=== PATIENT | female | born 1980 | race Caucasian/White ===

== ENCOUNTER 2021-01-05 11:38 | Emergency (ER) | payer OTHER | END 2021-01-05 13:15 | disposition home or self-care (01) | LOC: JVIRT 11:38 | DX: U07.1 COVID-19 (principal) | CPT/HCPCS: C9803; G2251-GT; U0003 ==

== ENCOUNTER 2021-12-09 06:45 | Emergency (ER) | payer OTHER ==
[2021-12-09 06:50] VITALS: BMI 29.1
[2021-12-09] MEDS ORDERED: MAG HYDROX/AL HYDROX/SIMETH -MYLANTA- ORAL SUSPENSION PO ONE (07:25)
[2021-12-09] MEDS ORDERED: FAMOTIDINE 20 MG/50 ML IVPB 20 MG/50 ML MG IVPB ONE ×2 (07:25→08:52)
[2021-12-09] MEDS ORDERED: MAG HYDROX/AL HYDROX/SIMETH 30 ML UNIT-DOSE CUP ONE (08:31)
[2021-12-09 09:09] LABS: BASO % 0.5 % (0-2.0); EOS % 0.4 % (0-4.5); HEMATOCRIT 39.5 % (32.4-45.2); HEMOGLOBIN 13.3 GM/dL (10.7-15.3); LYMPH % 22.7 % (8-40); MCH 27.8 pg (25.7-33.7); MCHC 33.8 g/dl (32.0-36.0); MEAN CELL VOLUME 82.4 fl (80-96); MONO % 4.1 % (3.8-10.2); NEUT % 72.3 % (42.8-82.8); PLATELET COUNT 304 10^3/uL (134-434); RBC 4.79 M/mm3 (3.60-5.2); RDW 14.3 % (11.6-15.6); WHITE BLOOD COUNT 4.9 K/mm3 (4.0-10.0)
[2021-12-09 09:30] LABS: ALBUMIN 4.4 g/dl (3.4-5.0); BLOOD UREA NITROGEN 10.1 mg/dL (7-18); CALCIUM 9.4 mg/dL (8.5-10.1); MAGNESIUM 2.2 mg/dL (1.8-2.4)
[2021-12-09 09:33] LABS: CREATININE 0.8 mg/dL (0.55-1.3)
[2021-12-09 09:34] LABS: BILIRUBIN,TOTAL 0.3 mg/dL (0.2-1)
[2021-12-09 09:35] LABS: TOT PROT 8.2 g/dl (6.4-8.2)
[2021-12-09] MEDS ORDERED: ASPIRIN 81 MG CHEWABLE TABLETS PO ONE (10:19)
[2021-12-09 10:46] VITALS: BP 124/50; PULSE 65; TEMP 98.3
== END 2021-12-09 11:14 | disposition home or self-care (01) ==
LOC: JER 06:45
PROC: 3E033GC Introduction of Other Therapeutic Substance into Peripheral Vein, Percutaneous Approach (ICD-10-PCS; principal; 2021-12-09)
DX: R10.9 Unspecified abdominal pain (principal)
CPT/HCPCS: 36415; 71046-TC-FY; 80053; 82550; 83735; 84484; 85025; 93005; 93010; 96374; 99285-25

== ENCOUNTER 2021-12-25 02:23 | Emergency (ER) | payer OTHER ==
[2021-12-25 02:33] VITALS: BMI 30.9
[2021-12-25] MEDS ORDERED: ACETAMINOPHEN 1000 MG/100 ML BAG IVPB ONE (03:00)
[2021-12-25] MEDS ORDERED: ACETAMINOPHEN INJECTION 100 ML IVPB ONE (03:17)
[2021-12-25 03:40] LABS: BASO % 0.6 % (0-2.0); HEMATOCRIT 35.8 % (32.4-45.2); LYMPH % 50.3 % (8-40); MCH 27.7 pg (25.7-33.7); MCHC 33.6 g/dl (32.0-36.0); MEAN CELL VOLUME 82.3 fl (80-96); MEAN PLT VOLUME 7.1 fl (7.5-11.1); MONO % 5.1 % (3.8-10.2); PLATELET COUNT 284 10^3/uL (134-434); RBC 4.35 M/mm3 (3.60-5.2); RDW 14.9 % (11.6-15.6); WHITE BLOOD COUNT 4.7 K/mm3 (4.0-10.0)
[2021-12-25 03:41] LABS: PH,URINE 6.5 (5.0-8.0); URINE APPEARANCE CLEAR; URINE BILIRUBIN NEGATIVE (NEGATIVE); URINE COLOR YELLOW; URINE GLUCOSE (UA) NEGATIVE (NEGATIVE); URINE KETONE NEGATIVE (NEGATIVE); URINE LEUK ESTERASE NEGATIVE (NEGATIVE); URINE NITRITE NEGATIVE (NEGATIVE); URINE PROTEIN NEGATIVE (NEGATIVE); URINE UROBILINOGEN 0.2 mg/dL (0.2-1.0)
[2021-12-25 03:47] LABS: INR 1.05 (0.83-1.09); PROTHROMBIN TIME (PATIENT) 12.1 SEC (9.7-13.0)
[2021-12-25 03:50] LABS: ACTIVATED PTT 32.4 SECONDS (25.2-36.5)
[2021-12-25 03:54] LABS: ALBUMIN 3.8 g/dl (3.4-5.0); CALCIUM 8.9 mg/dL (8.5-10.1)
[2021-12-25 03:55] LABS: BLOOD UREA NITROGEN 13.9 mg/dL (7-18)
[2021-12-25 03:57] LABS: CREATININE 0.9 mg/dL (0.55-1.3)
[2021-12-25 03:59] LABS: BILIRUBIN,TOTAL 0.3 mg/dL (0.2-1); TOT PROT 7.5 g/dl (6.4-8.2)
[2021-12-25] MEDS ORDERED: KETOROLAC TROMETHAMINE 15 MG/ML VIAL IVPUSH ONE (06:25)
[2021-12-25] MEDS ORDERED: KETOROLAC TROMETHAMINE 15 MG/ML VIAL ONE (06:31)
[2021-12-25 09:46] VITALS: BP 118/82; PULSE 60; TEMP 98.2
== END 2021-12-25 11:14 | disposition home or self-care (01) ==
LOC: JER 02:23
PROC: 3E0333Z Introduction of Anti-inflammatory into Peripheral Vein, Percutaneous Approach (ICD-10-PCS; principal; 2021-12-25)
PROC: 3E0333Z Introduction of Anti-inflammatory into Peripheral Vein, Percutaneous Approach (ICD-10-PCS; 2021-12-25)
DX: R10.31 Right lower quadrant pain (principal)
CPT/HCPCS: 36415; 71045-TC-FY; 74177-TC; 76830-TC; 80053; 81003; 83690; 84484; 84703; 85025; 85610; 85730; 87086; 87491; 87591; 87661; 93005; 93010; 99285-25; Q9967

== ENCOUNTER 2022-04-22 12:19 | Emergency (ER) | payer OTHER ==
[2022-04-22 12:27] VITALS: BP 111/68; PULSE 64; TEMP 98.3
[2022-04-22] MEDS ORDERED: PANTOPRAZOLE 40 MG TABLET PO ONE ×2 (13:04→13:30)
[2022-04-22] MEDS ORDERED: FAMOTIDINE 20 MG TABLET PO ONE (13:04)
[2022-04-22] MEDS ORDERED: MAG HYDROX/AL HYDROX/SIMETH -MYLANTA- ORAL SUSPENSION PO ONE (13:04)
[2022-04-22] MEDS ORDERED: FAMOTIDINE 20 MG TABLET ONE (13:30)
[2022-04-22] MEDS ORDERED: MAG HYDROX/AL HYDROX/SIMETH 30 ML UNIT-DOSE CUP ONE (13:30)
[2022-04-22 13:54] LABS: HEMATOCRIT 39.1 % (32.4-45.2); HEMOGLOBIN 13.1 GM/dL (10.7-15.3); MCH 27.7 pg (25.7-33.7); MCHC 33.4 g/dl (32.0-36.0); MEAN CELL VOLUME 82.8 fl (80-96); MEAN PLT VOLUME 7.9 fl (7.5-11.1); PLATELET COUNT 288 10^3/uL (134-434); RBC 4.72 M/mm3 (3.60-5.2); RDW 14.1 % (11.6-15.6); WHITE BLOOD COUNT 6.5 K/mm3 (4.0-10.0)
== END 2022-04-22 14:28 | disposition home or self-care (01) ==
LOC: JER 12:19
DX: K21.00 Gastro-esophageal reflux disease with esophagitis, without bleeding (principal)
CPT/HCPCS: 36415; 85027; 93005; 93010; 99283-25

== ENCOUNTER 2022-06-02 22:29 | Emergency (ER) | payer OTHER ==
[2022-06-02 22:40] VITALS: BP 134/85; PULSE 67; RESP 20; TEMP 97.9; BMI 29.1
[2022-06-02] MEDS ORDERED: SODIUM CHLORIDE 0.9% 500 ML INFUS.BAG IV ONE (23:18)
[2022-06-02] MEDS ORDERED: ONDANSETRON 4 MG/2 ML VIAL IVPUSH ONE (23:18)
[2022-06-02 23:43] LABS: URINE APPEARANCE CLEAR; URINE BILIRUBIN NEGATIVE (NEGATIVE); URINE COLOR YELLOW; URINE GLUCOSE (UA) NEGATIVE (NEGATIVE); URINE KETONE NEGATIVE (NEGATIVE); URINE LEUK ESTERASE NEGATIVE (NEGATIVE); URINE NITRITE NEGATIVE (NEGATIVE); URINE PROTEIN NEGATIVE (NEGATIVE); URINE UROBILINOGEN 0.2 mg/dL (0.2-1.0)
[2022-06-02 23:46] LABS: HCG,QUALITATIVE URINE Negative
[2022-06-03] MEDS ORDERED: ONDANSETRON 4 MG/2 ML VIAL ONE (00:02)
[2022-06-03 00:35] LABS: BASO % 0.4 % (0-2.0); EOS % 0.8 % (0-4.5); HEMATOCRIT 35.1 % (32.4-45.2); HEMOGLOBIN 12.1 GM/dL (10.7-15.3); LYMPH % 46.3 % (8-40); MCH 27.9 pg (25.7-33.7); MCHC 34.5 g/dl (32.0-36.0); MEAN PLT VOLUME 7.1 fl (7.5-11.1); MONO % 6.9 % (3.8-10.2); NEUT % 45.6 % (42.8-82.8); PLATELET COUNT 286 10^3/uL (134-434); RBC 4.33 M/mm3 (3.60-5.2); RDW 14.5 % (11.6-15.6); WHITE BLOOD COUNT 5.3 K/mm3 (4.0-10.0)
[2022-06-03 01:03] LABS: CHLORIDE 104 mmol/L (98-107); SODIUM 135 mmol/L (136-145)
[2022-06-03] MEDS ORDERED: MECLIZINE HCL 25 MG TABLET (FP) PO ONE (01:04)
[2022-06-03 01:05] LABS: ALBUMIN 3.4 g/dl (3.4-5.0); CALCIUM 8.5 mg/dL (8.5-10.1)
[2022-06-03 01:06] LABS: CO2 27 mmol/L (21-32); GLUCOSE,RANDOM 86 mg/dL (74-106)
[2022-06-03 01:09] LABS: SGOT/AST 75 U/L (15-37)
[2022-06-03] MEDS ORDERED: MECLIZINE HCL 25 MG TABLET (FP) ONE (01:09)
[2022-06-03 01:10] LABS: BILIRUBIN,TOTAL 0.3 mg/dL (0.2-1); TOT PROT 7.9 g/dl (6.4-8.2)
[2022-06-03 01:12] LABS: ALK PHOS 85 U/L (45-117)
[2022-06-03 02:22] LABS: ANION GAP 5 MMOL/L (8-16); SGPT/ALT 32 U/L (13-61)
[2022-06-03 07:54] LABS: MAGNESIUM 2.4 mg/dL (1.8-2.4)
[2022-06-03 07:58] LABS: PHOSPHOROUS 4.6 mg/dL (2.5-4.9)
== END 2022-06-03 01:28 | disposition home or self-care (01) ==
LOC: JER 22:29
PROC: 3E033GC Introduction of Other Therapeutic Substance into Peripheral Vein, Percutaneous Approach (ICD-10-PCS; principal; 2022-06-02)
DX: R42 Dizziness and giddiness (principal); R10.9 Unspecified abdominal pain
CPT/HCPCS: 0241U-QW; 36415; 80053; 81003; 83735; 84100; 84703; 85025; 87086; 93005; 93010; 99284-25

== ENCOUNTER 2022-11-27 22:47 | Inpatient (IN) | payer OTHER ==
[2022-11-27] MEDS ORDERED: ONDANSETRON 4 MG/2 ML VIAL IVPUSH ONE (23:26)
[2022-11-27] MEDS ORDERED: ACETAMINOPHEN 1000 MG/100 ML BAG IVPB ONE (23:26)
[2022-11-27] MEDS ORDERED: ONDANSETRON 4 MG/2 ML VIAL ONE (23:37)
[2022-11-27] MEDS ORDERED: ACETAMINOPHEN INJECTION 100 ML IVPB ONE (23:37)
[2022-11-27] MEDS ORDERED: LACTATED RINGERS SOLUTION 1000 ML INFUS.BAG IV ONE (23:51)
[2022-11-28 01:46] LABS: BASO % 0.3 % (0-2.0); EOS % 0.1 % (0-4.5); HEMATOCRIT 24.7 % (32.4-45.2); HEMOGLOBIN 8.3 GM/dL (10.7-15.3); LYMPH % 9.6 % (8-40); MCH 27.7 pg (25.7-33.7); MCHC 33.5 g/dl (32.0-36.0); MEAN CELL VOLUME 82.7 fl (80-96); MEAN PLT VOLUME 6.9 fl (7.5-11.1); MONO % 6.5 % (3.8-10.2); NEUT % 83.5 % (42.8-82.8); PLATELET COUNT 189 10^3/uL (134-434); RBC 2.98 M/mm3 (3.60-5.2); RDW 13.9 % (11.6-15.6); WHITE BLOOD COUNT 7.4 K/mm3 (4.0-10.0)
[2022-11-28 02:01] LABS: CALCIUM 8.5 mg/dL (8.5-10.1)
[2022-11-28 02:02] LABS: ALBUMIN 3.6 g/dl (3.4-5.0); BLOOD UREA NITROGEN 12.4 mg/dL (7-18)
[2022-11-28 02:05] LABS: CREATININE 0.7 mg/dL (0.55-1.3)
[2022-11-28 02:07] LABS: BILIRUBIN,TOTAL 0.8 mg/dL (0.2-1); TOT PROT 7.2 g/dl (6.4-8.2)
[2022-11-28] MEDS ORDERED: DIPHTH,PERTUSS(ACELL),TET 0.5 ML DISP.SYRIN IM ONE ×2 (02:20→04:00)
[2022-11-28 03:45] LABS: BASO % 0.2 % (0-2.0); HEMATOCRIT 35.4 % (32.4-45.2); HEMOGLOBIN 11.9 GM/dL (10.7-15.3); LYMPH % 8.8 % (8-40); MCH 27.6 pg (25.7-33.7); MCHC 33.5 g/dl (32.0-36.0); MEAN CELL VOLUME 82.4 fl (80-96); MEAN PLT VOLUME 7.1 fl (7.5-11.1); MONO % 5.7 % (3.8-10.2); NEUT % 85.3 % (42.8-82.8); PLATELET COUNT 260 10^3/uL (134-434); RDW 14.1 % (11.6-15.6); WHITE BLOOD COUNT 6.5 K/mm3 (4.0-10.0)
[2022-11-28 04:07] LABS: CHLORIDE 105 mmol/L (98-107); SODIUM 137 mmol/L (136-145)
[2022-11-28 04:09] LABS: CALCIUM 8.5 mg/dL (8.5-10.1)
[2022-11-28 04:10] LABS: ALBUMIN 3.4 g/dl (3.4-5.0); ANION GAP 7 MMOL/L (8-16); BLOOD UREA NITROGEN 11.4 mg/dL (7-18); CO2 24 mmol/L (21-32); GLUCOSE,RANDOM 166 mg/dL (74-106)
[2022-11-28 04:13] LABS: CREATININE 0.8 mg/dL (0.55-1.3); SGPT/ALT 746 U/L (13-61); TOTAL IRON BINDING CAPACITY 311 ug/dL (250-450)
[2022-11-28 04:14] LABS: BILIRUBIN,TOTAL 0.7 mg/dL (0.2-1); IRON SERUM 47 ug/dL (50-175); LDH 824 U/L (84-246)
[2022-11-28 04:15] LABS: TOT PROT 6.8 g/dl (6.4-8.2)
[2022-11-28 04:16] LABS: ALK PHOS 107 U/L (45-117)
[2022-11-28 04:41] LABS: SGOT/AST 1268 U/L (15-37)
[2022-11-28 05:39] LABS: BILIRUBIN,DIRECT 0.5 mg/dL (0.0-0.2)
[2022-11-28] MEDS: SODIUM CHLORIDE 1,000 ML IV SCH ×2 (05:46→22:15)
[2022-11-28 06:19] LABS: RETICULOCYTES 0.68 % (0.5-1.5)
[2022-11-28 06:49] LABS: EPI CELLS >36 /uL (0-25.1); HYALINE CASTS 0 /uL (0-3.1); URINE APPEARANCE CLEAR; URINE BACTERIA 1832 /uL (0-1359); URINE BILIRUBIN NEGATIVE (NEGATIVE); URINE COLOR YELLOW; URINE GLUCOSE (UA) NEGATIVE (NEGATIVE); URINE KETONE NEGATIVE (NEGATIVE); URINE LEUK ESTERASE 2+ (NEGATIVE); URINE NITRITE NEGATIVE (NEGATIVE); URINE PROTEIN NEGATIVE (NEGATIVE); URINE RBC 4 /uL (0-23.9); URINE WBC 68 /uL (0-25.8)
[2022-11-28 06:55] LABS: COCAINE, UR NEGATIVE (NEGATIVE); OPIATES, URI NEGATIVE (NEGATIVE)
[2022-11-28 06:56] LABS: METHADONE, UR NEGATIVE (NEGATIVE); PHENCYCLIDINE,URINE NEGATIVE (NEGATIVE); URINE BENZODIAZEPINES NEGATIVE (NEGATIVE)
[2022-11-28 07:02] LABS: URINE AMPHETAMINES NEGATIVE (NEGATIVE); URINE BARBITURATES NEGATIVE (NEGATIVE)
[2022-11-28 07:05] LABS: CALCIUM 8.9 mg/dL (8.5-10.1)
[2022-11-28 07:06] LABS: ALBUMIN 3.8 g/dl (3.4-5.0); BLOOD UREA NITROGEN 9.2 mg/dL (7-18)
[2022-11-28 07:09] LABS: CREATININE 0.7 mg/dL (0.55-1.3)
[2022-11-28 07:11] LABS: BILIRUBIN,TOTAL 0.9 mg/dL (0.2-1); TOT PROT 7.5 g/dl (6.4-8.2)
[2022-11-28] MEDS ORDERED: PANTOPRAZOLE 40 MG TABLET PO SCH (10:00)
[2022-11-28] MEDS ORDERED: amLODIPine BESYLATE 5 MG TABLET (FP) PO SCH (10:00)
[2022-11-28 11:43] LABS: INR 1.06 (0.83-1.09); PROTHROMBIN TIME (PATIENT) 12.3 SEC (9.7-13.0)
[2022-11-28 11:46] LABS: ACTIVATED PTT 28.4 SECONDS (25.2-36.5)
[2022-11-28] MEDS ORDERED: ALPRAZolam 1 MG TABLET PO PRN (12:34)
[2022-11-28] MEDS: ESCITALOPRAM OXALATE 10 MG TABLET PO SCH (14:32)
[2022-11-28 17:15] VITALS: BMI 29.2
[2022-11-28] MEDS: MELATONIN 5 MG TABLETS PO SCH (22:28)
[2022-11-29] MEDS: SODIUM CHLORIDE 1,000 ML IV SCH (05:57)
[2022-11-29 07:33] LABS: BASO % 0.7 % (0-2.0); EOS % 1.2 % (0-4.5); HEMATOCRIT 33.1 % (32.4-45.2); HEMOGLOBIN 11.1 GM/dL (10.7-15.3); LYMPH % 35.3 % (8-40); MCH 27.5 pg (25.7-33.7); MCHC 33.4 g/dl (32.0-36.0); MEAN CELL VOLUME 82.2 fl (80-96); MEAN PLT VOLUME 7.5 fl (7.5-11.1); MONO % 7.9 % (3.8-10.2); NEUT % 54.9 % (42.8-82.8); PLATELET COUNT 246 10^3/uL (134-434); RBC 4.03 M/mm3 (3.60-5.2); WHITE BLOOD COUNT 3.5 K/mm3 (4.0-10.0)
[2022-11-29 08:24] LABS: CALCIUM 8.5 mg/dL (8.5-10.1)
[2022-11-29 08:25] LABS: ALBUMIN 3.3 g/dl (3.4-5.0); BLOOD UREA NITROGEN 6.9 mg/dL (7-18)
[2022-11-29 08:27] LABS: TOT PROT 6.6 g/dl (6.4-8.2)
[2022-11-29 08:28] LABS: BILIRUBIN,TOTAL 0.6 mg/dL (0.2-1); CREATININE 0.6 mg/dL (0.55-1.3)
[2022-11-29] MEDS: ESCITALOPRAM OXALATE 10 MG TABLET PO SCH (10:11)
[2022-11-29] MEDS: MELATONIN 5 MG TABLETS PO SCH (21:42)
[2022-11-30 08:22] LABS: ALBUMIN 3.6 g/dl (3.4-5.0); BLOOD UREA NITROGEN 7.4 mg/dL (7-18); CREATININE 0.7 mg/dL (0.55-1.3)
[2022-11-30 08:23] LABS: BILIRUBIN,TOTAL 0.5 mg/dL (0.2-1)
[2022-11-30] MEDS: CEPHALEXIN MONOHYDRATE 500 MG CAPSULE (UD) PO SCH ×2 (10:28→21:38)
[2022-11-30] MEDS: ESCITALOPRAM OXALATE 10 MG TABLET PO SCH (10:28)
[2022-11-30 11:06] VITALS: RESP 18
[2022-11-30 14:08] LABS: BASO % 0.5 % (0-2.0); EOS % 0.7 % (0-4.5); HEMATOCRIT 39.9 % (32.4-45.2); HEMOGLOBIN 13.4 GM/dL (10.7-15.3); LYMPH % 26.3 % (8-40); MCH 27.7 pg (25.7-33.7); MCHC 33.6 g/dl (32.0-36.0); MEAN CELL VOLUME 82.4 fl (80-96); MEAN PLT VOLUME 7.5 fl (7.5-11.1); MONO % 5.9 % (3.8-10.2); NEUT % 66.6 % (42.8-82.8); PLATELET COUNT 315 10^3/uL (134-434); RBC 4.84 M/mm3 (3.60-5.2); RDW 14.2 % (11.6-15.6); WHITE BLOOD COUNT 5.1 K/mm3 (4.0-10.0)
[2022-11-30 14:19] LABS: INR 1.1 (0.83-1.09); PROTHROMBIN TIME (PATIENT) 12.7 SEC (9.7-13.0)
[2022-11-30] MEDS ORDERED: ALPRAZolam 0.25 MG TABLET PO ONE (17:08)
[2022-11-30] MEDS ORDERED: DOCUSATE SODIUM 100 MG CAPSULE (FP) PO PRN (20:54)
[2022-11-30] MEDS: MELATONIN 5 MG TABLETS PO SCH (22:29)
[2022-12-01] MEDS: ESCITALOPRAM OXALATE 10 MG TABLET PO SCH (09:11)
[2022-12-01] MEDS: CEPHALEXIN MONOHYDRATE 500 MG CAPSULE (UD) PO SCH (09:13)
[2022-12-01 09:15] VITALS: BP 119/80; PULSE 72; TEMP 98
[2022-12-01 10:44] LABS: BASO % 0.7 % (0-2.0); EOS % 0.6 % (0-4.5); HEMATOCRIT 38.7 % (32.4-45.2); LYMPH % 33.5 % (8-40); MCH 27.5 pg (25.7-33.7); MCHC 33.6 g/dl (32.0-36.0); MEAN PLT VOLUME 7.5 fl (7.5-11.1); MONO % 6.9 % (3.8-10.2); NEUT % 58.3 % (42.8-82.8); PLATELET COUNT 330 10^3/uL (134-434); RBC 4.73 M/mm3 (3.60-5.2); WHITE BLOOD COUNT 4.9 K/mm3 (4.0-10.0)
[2022-12-01 10:48] LABS: INR 1.09 (0.83-1.09); PROTHROMBIN TIME (PATIENT) 12.6 SEC (9.7-13.0)
[2022-12-01 11:12] LABS: BLOOD UREA NITROGEN 11.6 mg/dL (7-18); CALCIUM 9.3 mg/dL (8.5-10.1)
[2022-12-01 11:13] LABS: ALBUMIN 3.8 g/dl (3.4-5.0)
[2022-12-01 11:16] LABS: BILIRUBIN,TOTAL 0.7 mg/dL (0.2-1); CREATININE 0.8 mg/dL (0.55-1.3); TOT PROT 7.8 g/dl (6.4-8.2)
== END 2022-12-01 15:44 | disposition home or self-care (01) | DRG 204 ==
LOC: JER 22:47 → JERBED 11-28 02:31 → OBSVTOIN 11-28 04:05 → J4S 11-28 09:30
PROVIDERS: ADMIT Internal Medicine; ATTEND Nurse Practitioner Acute Care
PROC: 0CQ0XZZ Repair Upper Lip, External Approach (ICD-10-PCS; principal; 2022-11-27)
DX: R55 Syncope and collapse (principal); U07.1 COVID-19; R79.89 Other specified abnormal findings of blood chemistry; R74.01 Elevation of levels of liver transaminase levels; T40.2X5A Adverse effect of other opioids, initial encounter; Y92.89 Other specified places as the place of occurrence of the external cause; S01.511A Laceration without foreign body of lip, initial encounter; W19.XXXA Unspecified fall, initial encounter; Y93.9 Activity, unspecified; Y99.9 Unspecified external cause status; K21.9 Gastro-esophageal reflux disease without esophagitis; I10 Essential (primary) hypertension; F41.9 Anxiety disorder, unspecified
CPT/HCPCS: 36415; 70450-TC; 70486-TC; 71046-TC-FY; 72125-TC; 74176-TC; 74183-TC; 76705-TC; 80053; 80076; 80307; 81003; 82550; 82728; 83516; 83540; 83550; 83615; 83690; 83735; 84443; 84484; 84703; 85025; 85045; 85379; 85610; 85651; 85730; 86038; 86140; 86704; 86708; 86709; 86803; 87086; 87340; 87517; 90715; 93005; 93010; 99285-25; C9803-CS; G0378; U0003; U0005

== ENCOUNTER 2022-12-31 04:45 | Day surgery (SDC) | payer OTHER ==
[2022-12-31 08:10] VITALS: BMI 28.6
[2022-12-31 09:02] VITALS: TEMP 97.8
[2022-12-31 09:25] VITALS: BP 119/80; PULSE 65
[2022-12-31 09:47] VITALS: RESP 15
== END 2022-12-31 09:47 | disposition home or self-care (01) ==
LOC: JASU-ENDO 04:45
PROVIDERS: ATTEND Student in an Organized Health Care Education/Training Program
PROC: 0DB78ZX Excision of Stomach, Pylorus, Via Natural or Artificial Opening Endoscopic, Diagnostic (ICD-10-PCS; 2022-12-31)
PROC: 0DB68ZX Excision of Stomach, Via Natural or Artificial Opening Endoscopic, Diagnostic (ICD-10-PCS; principal; 2022-12-31 09:00)
DX: K29.50 Unspecified chronic gastritis without bleeding (principal); K21.9 Gastro-esophageal reflux disease without esophagitis
CPT/HCPCS: 81025; 88305-TC; 88342-TC

== ENCOUNTER 2023-06-16 17:06 | Emergency (ER) | payer OTHER ==
[2023-06-16 17:17] VITALS: BP 124/72; PULSE 83; RESP 18; TEMP 98.3; BMI 28.5
[2023-06-16] MEDS ORDERED: ACETAMINOPHEN 325 MG TABLET (FP) PO ONE (17:38)
[2023-06-16] MEDS ORDERED: ACETAMINOPHEN 325 MG TABLET (FP) ONE (17:47)
== END 2023-06-16 17:51 | disposition home or self-care (01) ==
LOC: JERFT 17:06
DX: M54.6 Pain in thoracic spine (principal); M25.561 Pain in right knee; M25.562 Pain in left knee; M54.2 Cervicalgia; V43.52XA Car driver injured in collision with other type car in traffic accident, initial encounter; Y93.I9 Activity, other involving external motion
CPT/HCPCS: 99283-25

== ENCOUNTER 2024-03-18 09:30 | Emergency (ER) | payer OTHER ==
[2024-03-18 09:56] VITALS: BP 103/66; PULSE 74; RESP 20; TEMP 97.9; BMI 28.6
[2024-03-18] MEDS ORDERED: FAMOTIDINE 20 MG/50 ML IVPB 20 MG/50 ML MG IVPB ONE (10:19)
[2024-03-18] MEDS ORDERED: MAG HYDROX/AL HYDROX/SIMETH 30 ML UNIT-DOSE CUP ONE (10:19)
[2024-03-18 10:22] LABS: BASO % 0.4 % (0-2.0); EOS % 0.6 % (0-4.5); HEMATOCRIT 35.3 % (32.4-45.2); LYMPH % 33.8 % (8-40); MCH 27.6 pg (25.7-33.7); MEAN PLT VOLUME 7.5 fl (7.5-11.1); MONO % 5.8 % (3.8-10.2); NEUT % 59.4 % (42.8-82.8); PLATELET COUNT 289 10^3/uL (134-434); RBC 4.36 M/mm3 (3.60-5.2); RDW 14.8 % (11.6-15.6); WHITE BLOOD COUNT 3.9 K/mm3 (4.0-10.0)
[2024-03-18] MEDS: MAG HYDROX/AL HYDROX/SIMETH 30 ML UNIT-DOSE CUP PO ONE (10:30)
[2024-03-18] MEDS: FAMOTIDINE 20 MG/50 ML IVPB 20 MG/50 ML MG IVPB ONE (10:31)
[2024-03-18 10:39] LABS: CHLORIDE 108 mmol/L (98-107); SODIUM 136 mmol/L (136-145)
[2024-03-18 10:41] LABS: CALCIUM 8.9 mg/dL (8.5-10.1)
[2024-03-18 10:42] LABS: ALBUMIN 3.3 g/dl (3.4-5.0); BLOOD UREA NITROGEN 8.9 mg/dL (7-18); CO2 28 mmol/L (21-32); GLUCOSE,RANDOM 103 mg/dL (74-106)
[2024-03-18 10:45] LABS: CREATININE 0.8 mg/dL (0.55-1.3); SGOT/AST 60 U/L (15-37)
[2024-03-18 10:46] LABS: ALK PHOS 74 U/L (45-117); TOT PROT 7.3 g/dl (6.4-8.2)
[2024-03-18 10:54] LABS: BILIRUBIN,TOTAL 0.3 mg/dL (0.2-1)
[2024-03-18 10:59] LABS: ANION GAP -1 mmol/L (4-13); POTASSIUM > 10.0 mmol/L (3.5-5.1)
[2024-03-18 11:00] LABS: SGPT/ALT 25 U/L (13-61)
[2024-03-18 11:08] LABS: PH,URINE 8.5 (5.0-8.0); URINE APPEARANCE CLOUDY; URINE BILIRUBIN NEGATIVE (NEGATIVE); URINE COLOR YELLOW; URINE GLUCOSE (UA) NEGATIVE (NEGATIVE); URINE KETONE NEGATIVE (NEGATIVE); URINE LEUK ESTERASE NEGATIVE (NEGATIVE); URINE NITRITE NEGATIVE (NEGATIVE); URINE PROTEIN NEGATIVE (NEGATIVE); URINE UROBILINOGEN 0.2 mg/dL (0.2-1.0)
== END 2024-03-18 11:24 | disposition home or self-care (01) ==
LOC: JER 09:30
PROC: 3E033GC Introduction of Other Therapeutic Substance into Peripheral Vein, Percutaneous Approach (ICD-10-PCS; principal; 2024-03-18)
DX: R10.13 Epigastric pain (principal); R42 Dizziness and giddiness; R61 Generalized hyperhidrosis
CPT/HCPCS: 36415; 71045-TC-FY; 80053; 81003; 83690; 84484; 84703; 85025; 93005; 93010; 99285-25